=== PATIENT | female | born 1955 | race Caucasian/White ===

== ENCOUNTER 2020-04-11 18:40 | Emergency (ER) | payer OTHER ==
[~2020-04-11] VITALS: Ht 157.5 cm; Wt 72.1 kg
[2020-04-11] MEDS ORDERED: HUMALOG100 UNIT/1 SUBQ (18:54)
[2020-04-11] MEDS ORDERED: HYDROCODON-ACE1 EAC7 PO (20:26)
[2020-04-11] MEDS ORDERED: IBUPROFEN 800800 M1 PO (20:26)
[2020-04-11 20:58] VITALS: BP 145/63
== END 2020-04-11 20:59 | disposition home or self-care (01) ==
LOC: M.ERS 18:40
DX: S22.32XA Fracture of one rib, left side, initial encounter for closed fracture (principal); E11.9 Type 2 diabetes mellitus without complications; Z79.4 Long term (current) use of insulin; W18.39XA Other fall on same level, initial encounter; Y93.89 Activity, other specified; Y92.89 Other specified places as the place of occurrence of the external cause; Y99.8 Other external cause status